=== PATIENT | female | born 1960 ===

== ENCOUNTER 2024-01-25 10:47 | Inpatient (IN) | payer OTHER ==
[2024-01-25] MEDS ORDERED: APIXABAN 5 MG TABLET ONE (12:19)
[2024-01-25] MEDS ORDERED: METOPROLOL TARTRATE 5 MG/5 ML INJ IV ONE (12:20)
[2024-01-25 12:28] LABS: Absolute Basophils 0.1 K/uL (0-0.5); Absolute Eosinophils 0.1 K/uL (0-0.5); Absolute Lymphocytes (CBC) 1.3 K/uL (0.7-4.9); Basophils % 1.4 % (0-1.3); Hematocrit 51.6 % (36.0-45.0); Hemoglobin 17.1 g/dL (12.0-15.0); Lymphocytes % 17.7 % (15.3-44.8); MCH 33.7 pg (27.0-35.0); MCHC 33.1 g/dL (32.0-36.0); MCV 101.7 fL (80-100); MPV 8.1 fL (7.6-11.3); Monocytes % 13.3 % (3.3-12.3); Neutrophils % 66.6 % (41.7-73.7); Nucleated Red Blood Cells % 0.1 % (0-0); Platelets 331 thou/uL (152-406); RBC Red Blood Cell Count 5.07 M/uL (3.86-4.86); Red Cell Distribution Width 13.9 % (12.1-15.2)
[2024-01-25 12:40] LABS: Albumin 3.9 g/dL (3.4-5.0); Albumin/Globulin Ratio 0.9 (1.1-1.8); Anion Gap 8.4 mEq/L (5.0-15.0); Bilirubin Direct 0.3 mg/dL (0-0.2); Bilirubin Indirect, Calculated 0.7 mg/dL (0.2-0.8); Globulin 4.2 g/dL (2.3-3.5); Potassium 3.4 mEq/L (3.5-5.1); Protein, Total 8.1 g/dL (6.4-8.2); Troponin High Sensitivity 8.2 pg/mL (<58.9)
--- NOTE | 2024-01-25 13:17 | EDPHYS ---
Physician Documentation [facility] Name: Hazel Goode Age: 63 yrs Sex: Female : 1960 Arrival Date: 01/25/2024 Time: 10:47 Bed 19 Private MD: ED Physician Nimco Foley HPI: 01/24 13:13 This 63 yrs old Unknown Female presents to ER via Ambulatory with complaints of AFIB. sp3 13:13 63-year-old female with history of hypertension sent by Dr. Hammond for new onset atrial sp3 fibrillation for admission with subsequent intervention tomorrow. Sotalol and Eliquis recommended. Patient denies any fever, chest pain, shortness of breath, back pain, palpitations, or any other signs or symptoms on ROS at this time.. Historical: - Allergies: 11:13 Sulfa (Sulfonamide Antibiotics); jl7 - Home Meds: 11:13 Metoprolol Tartrate Oral [Active]; valsartan-hydrochlorothiazide oral [Active]; jl7 - PMHx: 11:13 Hypertensive disorder; congenital heart defect; jl7 - PSHx: 11:13 Tonsillectomy; Open heart surgery to repair congenital heart defect; jl7 - Immunization history:: Adult Immunizations unknown. - Infectious Disease History:: Denies. - Social history:: Smoking status: Patient denies any tobacco usage or history of. ROS: 13:13 Constitutional: Negative for fever, chills, and weight loss, Eyes: Negative for injury, sp3 pain, redness, and discharge, Neck: Negative for injury, pain, and swelling, Respiratory: Negative for shortness of breath, cough, wheezing, and pleuritic chest pain, Abdomen/GI: Negative for abdominal pain, nausea, vomiting, diarrhea, and constipation, Back: Negative for injury and pain, MS/Extremity: Negative for injury and deformity, Skin: Negative for injury, rash, and discoloration, Neuro: Negative for headache, weakness, numbness, tingling, and seizure, Psych: Negative for depression, anxiety, suicide ideation, homicidal ideation, and hallucinations, Allergy/Immunology: Negative for hives, rash, and allergies, Endocrine: Negative for neck swelling, polydipsia, polyuria, polyphagia, and marked weight changes, Hematologic/Lymphatic: Negative for swollen nodes, abnormal bleeding, and unusual bruising, 13:13 All other systems are negative, Exam: 13:14 Constitutional: This is a well developed, well nourished patient who is awake, alert, sp3 and in no acute distress. Head/Face: Normocephalic, atraumatic. Eyes: Pupils equal round and reactive to light, extra-ocular motions intact. Lids and lashes normal. Conjunctiva and sclera are non-icteric and not injected. Cornea within normal limits. Periorbital areas with no swelling, redness, or edema. Neck: Trachea midline, no thyromegaly or masses palpated, and no cervical lymphadenopathy. Supple, full range of motion without nuchal rigidity, or vertebral point tenderness. No Meningismus. Chest/axilla: Normal chest wall appearance and motion. Nontender with no deformity. No lesions are appreciated. Respiratory: Lungs have equal breath sounds bilaterally, clear to auscultation and percussion. No rales, rhonchi or wheezes noted. No increased work of breathing, no retractions or nasal flaring. Abdomen/GI: Soft, non-tender, with normal bowel sounds. No distension or tympany. No guarding or rebound. No evidence of tenderness throughout. Back: No spinal tenderness. No costovertebral tenderness. Full range of motion. Skin: Warm, dry with normal turgor. Normal color with no rashes, no lesions, and no evidence of cellulitis. MS/ Extremity: Pulses equal, no cyanosis. Neurovascular intact. Full, normal range of motion. Neuro: Awake and alert, GCS 15, oriented to person, place, time, and situation. Cranial nerves II-XII grossly intact. Motor strength 5/5 in all extremities. Sensory grossly intact. Cerebellar exam normal. Normal gait. Psych: Awake, alert, with orientation to person, place and time. Behavior, mood, and affect are within normal limits. 13:14 Cardiovascular: Irregularly irregular rhythm, 13:14 ECG was reviewed by the Attending Physician. EKG demonstrates atrial fibrillation at 118 bpm with absent [place] interval, normal axis, nonspecific diffuse ST/T changes without evidence of acute ischemia. Vital Signs: 11:12 BP 120 / 76; Pulse 113; Resp 17; Pulse Ox 95% ; Weight 101.6 kg; Height 5 ft. 7 in. ; jl7 Pain 0/10; 12:01 BP 118 / 79; Pulse 120; Resp 17; Temp 98; Pulse Ox 98% on R/A; rs5 14:01 BP 125 / 74; Pulse 101; Resp 17; Pulse Ox 99% on R/A; rs5 16:20 BP 112 / 76; Pulse 107; Resp 17; Pulse Ox 97% on R/A; rs5 11:12 Body Mass Index 35.08 (101.60 kg, 170.18 cm) jl7 11:12 Pain Scale: Adult jl7 MDM: 11:41 Medical Screening Exam initiated sp3 13:14 Data reviewed: vital signs, nurses notes, lab test result(s), EKG, radiologic studies. sp3 ED course: Lopressor 5 mg IV and Eliquis 5 mg p.o. given. Patient stable. Atrial fibrillation due to [place] heart etiology versus electrolytes. Labs normal. Troponin negative. Will admit to medicine for further care and cardiology intervention tomorrow.. 01/24 12:05 Order name: Basic Metabolic Panel; Complete Time: 13:12 sp3 01/24 12:05 Order name: CBC with Diff; Complete Time: 13:12 sp3 01/24 12:05 Order name: LFT's; Complete Time: 13:12 sp3 01/24 12:05 Order name: Magnesium; Complete Time: 13:12 sp3 01/24 12:05 Order name: NT PRO-BNP; Complete Time: 13:12 sp3 01/24 12:05 Order name: PT-INR; Complete Time: 13:25 sp3 01/24 12:05 Order name: Troponin HS; Complete Time: 13:12 sp3 01/24 14:23 Order name: CBC with Automated Diff EDMS 01/24 14:23 Order name: CBC with Automated Diff EDMS 01/24 14:23 Order name: Comprehensive Metabolic Panel EDMS 01/24 14:23 Order name: Comprehensive Metabolic Panel EDMS 01/24 14:23 Order name: T4 Free EDMS 01/24 14:23 Order name: T4 Free EDMS 01/24 14:23 Order name: Thyroid Stimulating Hormone EDMS 01/24 14:23 Order name: Thyroid Stimulating Hormone EDMS 01/24 14:23 Order name: Vitamin B12 Level EDMS 01/24 14:23 Order name: Vitamin B12 Level EDMS 01/24 12:05 Order name: XRAY Chest (1 view); Complete Time: 13:44 sp3 01/24 14:23 Order name: CONS Physician Consult EDWV 01/24 12:05 Order name: Cardiac monitoring; Complete Time: 12:12 sp3 01/24 12:05 Order name: EKG - Nurse/Tech; Complete Time: 12:12 sp3 01/24 12:05 Order name: IV Saline Lock; Complete Time: 12:12 sp3 01/24 12:05 Order name: Labs collected and sent; Complete Time: 12:12 sp3 01/24 12:05 Order name: O2 Per Protocol; Complete Time: 12:12 sp3 01/24 12:05 Order name: O2 Sat Monitoring; Complete Time: 12:12 sp3 01/24 12:40 Order name: Labs - recollect needed: recollect blue top; Complete Time: 13:05 bd Administered Medications: 12:15 Drug: Metoprolol IVP 5 mg IVP once; Hold for SBP <100 or HR <60. Route: IVP; Site: [facility] right antecubital; 12:30 Follow up: Response: No adverse reaction rs5 12:15 Drug: Eliquis PO 5 mg PO once Route: PO; rs5 13:01 Follow up: Response: No adverse reaction rs5 14:10 Drug: Sotalol PO 80 mg PO once Route: PO; rs5 15:21 Follow up: Response: No adverse reaction rs5 Disposition Summary: 01/25/24 13:16 Hospitalization Ordered Notes: Hospitalization Status: Inpatient Admission sp3 Provider: Elier Molina3 Location: Telemetry/[facility] (Inpatient) sp3 Condition: Stable sp3 Problem: new sp3 Symptoms: have worsened sp3 Bed/Room Type: Standard sp3 Room Assignment: 204(01/25/24 15:16) Diagnosis - Atrial fibrillation with rapid ventricular response sp3 Forms: - Medication Reconciliation Form sp3 - SBAR form sp3 - Leadership Thank You Letter sp3 Signatures: Dispatcher [employer] EDWV Lupe Jimenes Shelly, BIPINC ASSISTANT TO THE VICE PRESIDENT-Csnw Rocio Zaidi RN RN ss David Montesinos RN RN [id number] Nimco Foley MD MD sp3 Shar Olivares RN RN rs5 Corrections: (The following items were deleted from the chart) 11:15 11:13 PMHx: Congenital heart disease; jl7 jl7 12:06 12:06 BASIC METABOLIC PANEL+C.LAB.BRZ ordered. EDMS EDMS 12:06 12:06 CBC+H.LAB.BRZ ordered. EDMS EDMS 12:06 12:06 HEPATIC FUNCTION+C.LAB.BRZ ordered. EDMS EDMS 12: 12:06 MAGNESIUM+C.LAB.BRZ ordered. EDMS EDMS 12:06 12:06 PROBNP+C.LAB.BRZ ordered. EDMS EDMS 12:06 12:06 PROTIME (+INR)+COAG.LAB.BRZ ordered. EDMS EDMS 12:06 12:06 Troponin High Sensitivity+C.LAB.BRZ ordered. EDMS EDMS 12:06 12:06 Chest Single View+RAD.RAD.BRZ ordered. EDMS EDMS 15:16 13:16 sp3 ss
--- NOTE | 2024-01-25 13:17 | ER ---
Nurse's Notes [facility] Name: Hazel Goode Age: 63 yrs Sex: Female : 1960 Arrival Date: 01/25/2024 Time: 10:47 Bed 19 [facility] MD: Diagnosis: Atrial fibrillation with rapid ventricular response Presentation: 01/24 11:12 Chief complaint: Patient states: Sent by Dr. Hammond for new onset a.fib, denies jl7 palpitation, denies SOB, denies pain. Coronavirus screen: At this time, the client does not indicate any symptoms associated with coronavirus-19. Ebola Screen: No symptoms or risks identified at this time. Initial Sepsis Screen: Does the patient meet any 2 criteria? No. Patient's initial sepsis screen is negative. Does the patient have a suspected source of infection? No. Patient's initial sepsis screen is negative. Risk Assessment: Do you want to hurt yourself or someone else? Patient reports no desire to harm self or others. Onset of symptoms is unknown. 11:12 Method Of Arrival: Ambulatory [facility] 11:12 Acuity: ISABELLE 2 jl7 Triage Assessment: 10:55 General: Appears in no apparent distress. uncomfortable, Behavior is calm, cooperative, jl7 appropriate for age. Pain: Denies pain. Neuro: Level of Consciousness is awake, alert, obeys commands, Oriented to person, place, time, situation. Cardiovascular: Denies chest pain, palpitations, shortness of breath, Patient's skin is warm and dry. Respiratory: Airway is patent Respiratory effort is even, unlabored, Respiratory pattern is regular, symmetrical. Derm: Skin is pink, warm \T\ dry. Historical: - Allergies: 11:13 Sulfa (Sulfonamide Antibiotics); jl7 - Home Meds: 11:13 Metoprolol Tartrate Oral [Active]; valsartan-hydrochlorothiazide oral [Active]; jl7 - PMHx: 11:13 Hypertensive disorder; congenital heart defect; jl7 - PSHx: 11:13 Tonsillectomy; Open heart surgery to repair congenital heart defect; jl7 - Immunization history:: Adult Immunizations unknown. - Infectious Disease History:: Denies. - Social history:: Smoking status: Patient denies any tobacco usage or history of. Screenin:11 [facility] ED Fall Risk Assessment (Adult) History of falling in the last 3 months, rs5 including since admission No falls in past 3 months (0 pts) Confusion or Disorientation No (0 pts) Intoxicated or Sedated No (0 pts) Impaired Gait No (0 pts) Mobility Assist Device Used No (0 pt) Altered Elimination No (0 pt) Score/Fall Risk Level 0 - 2 = Low Risk Oriented to surroundings, Maintained a safe environment. Abuse screen: Denies threats or abuse. Nutritional screening: No deficits noted. Tuberculosis screening: No symptoms or risk factors identified. Assessment: 11:10 General: Appears in no apparent distress. comfortable, Behavior is calm, cooperative. rs5 Pain: Denies pain. Neuro: Level of Consciousness is awake, alert, obeys commands, Oriented to person, place, time, situation. Cardiovascular: Patient's skin is warm and dry. Respiratory: Airway is patent Respiratory effort is even, unlabored, Respiratory pattern is regular, symmetrical. GI: Abdomen is round non-distended, Abd is soft and non tender X 4 quads. : No signs and/or symptoms were reported regarding the genitourinary system. EENT: No signs and/or symptoms were reported regarding the EENT system. Derm: Skin is intact, Skin is pink, warm \T\ dry. Musculoskeletal: Range of motion: intact in all extremities. 12:21 Reassessment: Patient and/or family updated on plan of care and expected duration. Pain rs5 level reassessed. Patient is alert, oriented x 3, equal unlabored respirations, skin warm/dry/pink. 13:19 Reassessment: Patient and/or family updated on plan of care and expected duration. Pain rs5 level reassessed. Patient is alert, oriented x 3, equal unlabored respirations, skin warm/dry/pink. 14:33 Reassessment: No changes from previously documented assessment. rs5 15:41 Reassessment: Patient and/or family updated on plan of care and expected duration. Pain rs5 level reassessed. Patient is alert, oriented x 3, equal unlabored respirations, skin warm/dry/pink. 16:25 Reassessment: No changes from previously documented assessment. rs5 Vital Signs: 11:12 BP 120 / 76; Pulse 113; Resp 17; Pulse Ox 95% ; Weight 101.6 kg; Height 5 ft. 7 in. ; jl7 Pain 0/10; 12:01 BP 118 / 79; Pulse 120; Resp 17; Temp 98; Pulse Ox 98% on R/A; rs5 14:01 BP 125 / 74; Pulse 101; Resp 17; Pulse Ox 99% on R/A; rs5 16:20 BP 112 / 76; Pulse 107; Resp 17; Pulse Ox 97% on R/A; rs5 11:12 Body Mass Index 35.08 (101.60 kg, 170.18 cm) jl7 11:12 Pain Scale: Adult jl7 ED Course: 10:50 Patient arrived in ED. mg5 10:51 Nimco Foley MD is Attending Physician. sp3 10:55 Arm band placed on right wrist. EKG completed in triage. Results shown to MD. jl7 11:11 Patient has correct armband on for positive identification. Placed in gown. Bed in low rs5 position. Call light in reach. Side rails up X2. 11:11 No provider procedures requiring assistance completed. rs5 11:13 Triage completed. jl7 11:41 Shar Olivares, ANGELY is Primary Nurse. rs5 11:55 Initial lab(s) drawn, by me, sent to lab. Inserted saline lock: 20 gauge in right bc6 antecubital area, using aseptic technique. Blood collected. Flushed with 10 mL NS. 13:15 Elier Molina MD is Hospitalizing Provider. sp3 13:32 XRAY Chest (1 view) In Process Unspecified. EDMS 13:56 1356 CM met with patient at the bedside in the ED exam room. Patient identified by name ane and . Demographic sheet confirmed. PCP is Amanda Marte NP. Patient states she lives with her Louie, in a single story home. She reports that prior to admission, she performs ADLs independently. No DME, no HH, no home oxygen, no other medical services at this time. Patient reports MPOA is in place. Her preferred plan is to return home and to work when discharged. She states her Louie can transport her home. CM team will continue to follow and coordinate care. 16:25 Patient admitted, IV remains in place. rs5 Administered Medications: 12:15 Drug: Metoprolol IVP 5 mg IVP once; Hold for SBP <100 or HR <60. Route: IVP; Site: rs5 right antecubital; 12:30 Follow up: Response: No adverse reaction rs5 12:15 Drug: Eliquis PO 5 mg PO once Route: PO; rs5 13:01 Follow up: Response: No adverse reaction rs5 14:10 Drug: Sotalol PO 80 mg PO once Route: PO; rs5 15:21 Follow up: Response: No adverse reaction rs5 Medication: 16:32 VIS not applicable for this client. rs5 Outcome: 13:16 Decision to Hospitalize by Provider. sp3 16:25 Admitted to ER Hold. Please see [facility] for further documentation. rs5 16:25 Condition: stable 16:25 Instructed on the need for admit, Demonstrated understanding of instructions, 16:30 Patient left the ED. rs5 Signatures: Dispatcher [employer] EDDavid Sethi RN RN jl7 Nimco Foley MD MD sp3 Shar Olivares RN RN rs5 Deepa Starkey Miley Tsang 5 Wendi Green RN RN ane Corrections: (The following items were deleted from the chart) 11:15 11:13 PMHx: Congenital heart disease; jl7 jl7 16:35 16:01 BP 112 / 76; Pulse 107bpm; Resp 17bpm; Pulse Ox 97% RA; rs5 rs5 16:36 12:01 BP 118 / 79; Pulse 120bpm; Resp 17bpm; Pulse Ox 98% RA; rs5 rs5
[2024-01-25 13:18] LABS: PT Prothrombin Time 13.5 SECONDS (9.4-12.5); Protime INR 1.21
--- NOTE | 2024-01-25 13:26 | P.HP ---
Certification for Inpatient Patient admitted to: Inpatient With expected LOS: >2 Midnights Patient will require the following post-hospital care: None Practitioner: I am a practitioner with admitting privileges, knowledge of patient current condition, hospital course, and medical plan of care. Services: Services provided to patient in accordance with Admission requirements found in Title 42 Section 412.3 of the Code of Federal Regulations Patient History Date of Service: 01/25/24 Reason for admission: new onset a. fib History of Present Illness: Ms. Goode is a 63-year-old female with a past medical history of hypertension. She has seen Dr. Hammond in the past and had a 6-month checkup today. While getting an EKG in the clinic,she was noted to be in atrial fibrillation. Ms. Goode was sent to the emergency room for evaluation and initiation of sotalol 80 mg p.o. twice daily and Eliquis 5 mg p.o. twice daily. She was hemodynamically stable with a rate of 118 so 5 mg IV metoprolol was administered in the emergency department. She remains asymptomatic. She will be admitted for chemical cardioversion. Labs: H/H17.1/51.6 with platelets of 331, sodium 132, potassium 3.4, creatinine 0.96 with a GFR of 67 Imaging: Chest x-ray with no acute intrathoracic abnormalities Allergies Sulfa (Sulfonamide Antibiotics) [Sulfa(Sulfonamide Antibiotics)] Allergy (Intermediate, Verified 04/11/14 15:52) Hives/Rash hydrocodone Allergy (Verified 04/11/14 15:52) Anaphylaxis Home medications list reviewed: Yes Home Medications: Aliskiren/Hydrochlorothiazide [Tekturna Hct 150-25 mg Tablet] 1 each PO DAILY 04/11/14 Norethindrone-E.estradiol-Iron [Loestrin Fe 1-20 Tablet] 1 each PO DAILY 04/11/14 - Past Medical/Surgical History Diabetic: No -: HTN Psychosocial/ Personal History: Lives at home with her - Social History Smoking Status: Never smoker Alcohol use: Yes CD- Drugs: No Caffeine use: Yes Place of Residence: Home Review of Systems 10-point ROS is otherwise unremarkable General: Unremarkable Eyes: Unremarkable ENT: Unremarkable Respiratory: Unremarkable Cardiovascular: Unremarkable Gastrointestinal: Unremarkable Genitourinary: Unremarkable Musculoskeletal: Unremarkable Integumentary: Unremarkable Neurological: Unremarkable Lymphatics: Unremarkable Physical Examination - Vital Signs Blood Pressure: 120/76 Pulse: 113 Respirations: 17 Pulse Ox (%): 95 - Physical Exam General: Alert, In no apparent distress, Oriented x3 HEENT: Atraumatic, Normocephalic Neck: Supple Respiratory: Clear to auscultation bilaterally, Normal air movement, Diminished Cardiovascular: No edema, Irregular heart rate/rhythm Capillary refill: <2 Seconds Gastrointestinal: Soft and benign Musculoskeletal: No clubbing, No swelling, No contractures Integumentary: No rashes, Other (dry) Neurological: Normal speech, Normal tone, Normal affect Lymphatics: No axilla or inguinal lymphadenopathy External genitalia: Deferred Rectal: Deferred - Studies Laboratory Data (last 24 hrs) 01/25/24 01/25/24 01/25/24 13:00 12:15 12:15 WBC 7.50 Hgb 17.1 H Hct 51.6 H Plt Count 331 PT 13.5 H INR 1.21 Sodium 132 L Potassium 3.4 L BUN 7 Creatinine 0.96 Glucose 109 H Magnesium 2.0 Total Bilirubin 1.0 AST 41 H ALT 55 Alkaline Phosphatase 114 Assessment and Plan - Plan New onset A-fib with RVR 1. Continue medications for rate control - sotalol 2. Anticoagulation - eliquis 3. Echocardiogram 4. Cardiology consultation - Dr. Hammond 5. GI and DVT prophylaxis Hemoconcentration NS at 75ml/hr Heart healthy diet Hypertension valsartan at home - 40mg - will increase to home dose prn, hold hctz 2nd to hemoconcentration Atorvastatin Discharge Plan: Home Plan to discharge in: 48 Hours - Advance Directives Does patient have a Living Will: Yes Does patient have a Durable POA for Healthcare: Yes - Code Status/Comfort Care Code Status Assessed: Yes (Full)
--- NOTE | 2024-01-25 13:41 | RAD REPORT ---
EXAMINATION: ONE VIEW CHEST XR CLINICAL INDICATION: PALPITATIONS TECHNIQUE: Frontal chest projection is submitted. Examination is limited by patient positioning and t echnique. COMPARISON: No prior exam. FINDINGS: The lungs are well inflated and clear. The heart is upper limit of normal in size. No displaced fract ures identified. IMPRESSION: No acute intrathoracic abnormalities.
[2024-01-25] MEDS ORDERED: ONDANSETRON 4 MG/2 ML VIAL IV PRN (14:18)
[2024-01-25] MEDS ORDERED: ACETAMINOPHEN 500 MG TAB PO PRN (14:18)
[2024-01-25] MEDS: SOTALOL HCL 80 MG TAB PO ONE (14:45)
[2024-01-25 17:18] VITALS: BMI 35.0
[2024-01-25] MEDS ORDERED: SOTALOL HCL 80 MG TAB PO SCH (18:00)
[2024-01-25] MEDS: NA CHLORIDE 0.9% 1,000 ML IV SCH (18:00)
[2024-01-25 18:12] LABS: Thyroid Stimulating Hormone 4.49 uIU/mL (0.358-3.740)
[2024-01-25] MEDS: PANTOPRAZOLE 40MG TABLET PO SCH (20:02)
[2024-01-25] MEDS: ATORVASTATIN 20 MG TAB PO SCH (20:34)
[2024-01-25] MEDS: SOTALOL HCL 80 MG TAB PO SCH (20:34)
[2024-01-25] MEDS: POTASSIUM CL SA 10 MEQ TAB PO ONE (20:35)
[2024-01-25] MEDS: APIXABAN 5 MG TABLET PO SCH (20:36)
[2024-01-26 05:12] LABS: Absolute Basophils 0.1 K/uL (0-0.5); Absolute Eosinophils 0.1 K/uL (0-0.5); Absolute Lymphocytes (CBC) 1.6 K/uL (0.7-4.9); Absolute Monocytes 0.9 K/uL (0.1-1.3); Absolute Neutrophil 4.4 K/uL (1.8-8.0); Basophils % 1.1 % (0-1.3); Eosinophils % 1.9 % (0-4.4); Hematocrit 45.9 % (36.0-45.0); Hemoglobin 15.4 g/dL (12.0-15.0); MCH 33.9 pg (27.0-35.0); MCHC 33.6 g/dL (32.0-36.0); MCV 100.9 fL (80-100); Monocytes % 12.5 % (3.3-12.3); Neutrophils % 62.5 % (41.7-73.7); Nucleated Red Blood Cells % 0.1 % (0-0); Platelets 269 thou/uL (152-406); RBC Red Blood Cell Count 4.55 M/uL (3.86-4.86); Red Cell Distribution Width 13.9 % (12.1-15.2)
[2024-01-26 05:57] LABS: Albumin/Globulin Ratio 0.9 (1.1-1.8); Anion Gap 8.4 mEq/L (5.0-15.0); Globulin 3.5 g/dL (2.3-3.5); Magnesium 2.1 mg/dL (1.6-2.4); Potassium 4.4 mEq/L (3.5-5.1); Protein, Total 6.5 g/dL (6.4-8.2)
[2024-01-26 05:58] LABS: Thyroid Stimulating Hormone 4.83 uIU/mL (0.358-3.740)
[2024-01-26] MEDS: VALSARTAN 40 MG TAB PO SCH (08:58)
--- NOTE | 2024-01-26 09:42 | P.PN ---
Date of Service: 01/26/24 Subjective feeling the same, no c/o except not much sleep in the hospital Review of Systems 10-point ROS is otherwise unremarkable General: Unremarkable Eyes: Unremarkable ENT: Unremarkable Respiratory: Unremarkable Cardiovascular: Unremarkable Gastrointestinal: Unremarkable Genitourinary: Unremarkable Musculoskeletal: Unremarkable Integumentary: Unremarkable Neurological: Unremarkable Lymphatics: Unremarkable Physical Examination - Vital Signs reviewed - Physical Exam General: Alert, In no apparent distress, Oriented x3 HEENT: Atraumatic, Normocephalic Neck: Supple Respiratory: Clear to auscultation bilaterally, Normal air movement, Diminished Cardiovascular: No edema, regular heart rate/rhythm Capillary refill: <2 Seconds Gastrointestinal: Soft and benign Musculoskeletal: No clubbing, No swelling, No contractures Integumentary: No rashes, Other (dry) Neurological: Normal speech, Normal tone, Normal affect Lymphatics: No axilla or inguinal lymphadenopathy External genitalia: Deferred Rectal: Deferred - Studies Laboratory Data (last 24 hrs) 01/25/24 01/25/24 01/25/24 13:00 12:15 12:15 WBC 7.50 Hgb 17.1 H Hct 51.6 H Plt Count 331 PT 13.5 H INR 1.21 Sodium 132 L Potassium 3.4 L BUN 7 Creatinine 0.96 Glucose 109 H Magnesium 2.0 Total Bilirubin 1.0 AST 41 H ALT 55 Alkaline Phosphatase 114 Assessment and Plan - Plan New onset A-fib with RVR 1. Continue medications for rate control - sotalol 2. Anticoagulation - eliquis 3. Echocardiogram 4. Cardiology consultation - Dr. Hammond 5. GI and DVT prophylaxis Hemoconcentration NS at 75ml/hr Heart healthy diet improved to H/H 15.4/45.9 replaced potassium discussed diuretics continue to monitor and trend/replete electrolytes Hypertension valsartan at home - 40mg - will increase to home dose prn, hold hctz 2nd to hemoconcentration Atorvastatin 130/90 this am 01/26/24 feeling the same, no edema, alert and awake. Heart sounds RRR. Will repeat EKG states she gets ECHOs at Dr. Hammond's office so may hold echo order awaiting third dose of sotalol irregular rate in 80s later in the am NPO post MN for GERSON with DCCV Discharge Plan: Home Plan to discharge in: 48 Hours - Advance Directives Does patient have a Living Will: Yes Does patient have a Durable POA for Healthcare: Yes - Code Status/Comfort Care Code Status Assessed: Yes (Full)
--- NOTE | 2024-01-26 12:49 | P.CNS ---
Date of Consult: 01/26/24 Chief Complaint: new onset a. fib History of Present Illness: Patient with PMH of HTN, was admitted from clinic for new onset atrial fibrillation, report palpitations but denies chest pain, no SOB. Allergies Sulfa (Sulfonamide Antibiotics) [Sulfa(Sulfonamide Antibiotics)] Allergy (Intermediate, Verified 04/11/14 15:52) Hives/Rash hydrocodone Allergy (Verified 04/11/14 15:52) Anaphylaxis Home medications list reviewed: Yes Home Medications: Metoprolol Succinate 25 mg PO DAILY 01/25/24 Valsartan/Hydrochlorothiazide [Valsartan-Hctz 160-12.5 mg Tab] 1 each PO DAILY 01/25/24 - Past Medical/Surgical History Diabetic: No -: HTN -: Congenital Heart Defect (Aortic valve constriction) -: Tonsillectomy -: -: Open heart Surgery Psychosocial/ Personal History: Lives at home with her - Social History Alcohol use: Yes CD- Drugs: No Caffeine use: Yes Place of Residence: Home Review of Systems 10-point ROS is otherwise unremarkable Physical Examination Temp Pulse Resp BP Pulse Ox 97.0 F 73 18 146/82 H 99 01/26/24 08:00 01/26/24 08:00 01/26/24 08:00 01/26/24 08:00 01/26/24 08:00 General: Alert, In no apparent distress HEENT: Atraumatic, PERRLA, Mucous membr. moist/pink, EOMI, Sclerae nonicteric Neck: Supple, 2+ carotid pulse no bruit, No LAD, Without JVD or thyroid abnormality Respiratory: Clear to auscultation bilaterally, Normal air movement Cardiovascular: Irregular heart rate/rhythm Gastrointestinal: Normal bowel sounds, No tenderness Musculoskeletal: No tenderness Integumentary: No rashes Neurological: Normal gait, Normal speech, Normal tone, Normal affect Lymphatics: No axilla or inguinal lymphadenopathy Laboratory Data (last 24 hrs) 01/25/24 13:00 PT 13.5 H INR 1.21 - Problems (1) Atrial fibrillation Current Visit: Yes Status: Acute Plan: Tele shows atrial fibrillation ,rate controlled Continue Sotalol 80 mg po BID (EKG after 3rd dose) Continue Eliquis 5 mg po BID NPO after midnight for possible GERSON DCCV in am. (2) HTN (hypertension) Current Visit: Yes Status: Acute Plan: continue patient home medications D/C IV fluids
[2024-01-26] MEDS: ACETAMINOPHEN 500 MG TAB PO PRN (20:52)
[2024-01-27 05:06] LABS: Anion Gap 7.3 mEq/L (5.0-15.0); Phosphorus 3.7 mg/dL (2.5-4.9); Potassium 4.3 mEq/L (3.5-5.1)
[2024-01-27] MEDS: SOTALOL HCL 80 MG TAB PO SCH (06:20)
[2024-01-27] MEDS: NA CHLORIDE 0.9% 500 ML ONE (09:28)
[2024-01-27] MEDS ORDERED: LIDOCAINE 1% MPF 5 ML VIAL ONE (09:57)
[2024-01-27] MEDS ORDERED: propofoL 200 MG/20 ML VIAL IV ONE (09:57)
--- NOTE | 2024-01-27 10:47 | P.PN ---
Subjective Date of Service: 01/27/24 Chief Complaint: new onset a. fib Subjective: No new changes, No C/O voiced, Tolerating diet, Ambulating, Improving Review of Systems 10-point ROS is otherwise unremarkable Physical Examination - Vital Signs Temperature: 97.7 F Blood Pressure: 145/79 Pulse: 86 Respirations: 16 Pulse Ox (%): 95 - Physical Exam General: Alert, In no apparent distress HEENT: Atraumatic, PERRLA, EOMI Neck: Supple, JVD not distended Respiratory: Clear to auscultation bilaterally, Normal air movement Cardiovascular: Regular rate/rhythm, Normal S1 S2 Gastrointestinal: Normal bowel sounds, No tenderness Musculoskeletal: No tenderness Integumentary: No rashes Neurological: Normal speech, Normal tone, Normal affect Lymphatics: No axilla or inguinal lymphadenopathy - Studies Medications List Reviewed: Yes Assessment And Plan - Current Problems (Diagnosis) (1) Atrial fibrillation Current Visit: Yes Status: Acute Plan: Tele shows atrial fibrillation ,rate controlled, patient is s/p GERSON DCCV, converted to sinus rhythm. Continue Sotalol 80 mg po BID (EKG after 3rd dose) Continue Eliquis 5 mg po BID (2) HTN (hypertension) Current Visit: Yes Status: Acute Plan: continue patient home medications
--- NOTE | 2024-01-27 12:35 | P.DS ---
Admission Date: 01/25/24 Discharge Date: 01/27/24 Reason for Admission: new onset a. fib Consultations: Dr. Lange Brief History of Present Illness: Ms. Goode is a 63-year-old female with a past medical history of hypertension. She has seen Dr. Hammond in the past and had a 6-month checkup today. While getting an EKG in the clinic,she was noted to be in atrial fibrillation. Ms. Goode was sent to the emergency room for evaluation and initiation of sotalol 80 mg p.o. twice daily and Eliquis 5 mg p.o. twice daily. She was hemodynamically stable with a rate of 118 so 5 mg IV metoprolol was administered in the emergency department. She remains asymptomatic. She will be admitted for chemical cardioversion. Labs: H/H17.1/51.6 with platelets of 331, sodium 132, potassium 3.4, creatinine 0.96 with a GFR of 67 Imaging: Chest x-ray with no acute intrathoracic abnormalities Hospital Course: Mrs. Goode did well over the course of her hospitalization. Sotalol alone did control rate; however, patient remained in A-fib this morning. She was taken to the Operational Trainer and a GERSON DCCV performed. Patient in normal sinus rhythm after conversion. Hemodynamically stable. No complaints. She will need to continue Sotalol 80 mg p.o. twice daily and Eliquis 5 mg p.o. twice daily and will follow-up with cardiology in 2 weeks <Lorena Gandhi - Last Filed: 01/27/24 13:15> Admission Date: 01/25/24 Discharge Date: 01/27/24 Hospital Course: Discharge diagnosis New onset atrial fibrillation Hypertension Obesity <JERICHO Jones - Last Filed: 01/27/24 17:06> Disposition: ROUTINE DISCHARGE Discharge Condition: GOOD Vital Signs/Physical Exam: Temp Pulse Resp BP Pulse Ox 97.7 F 78 16 120/72 95 01/27/24 10:47 01/27/24 10:50 01/27/24 10:50 01/27/24 10:50 01/27/24 10:47 General: Alert, In no apparent distress, Oriented x3, Other (mildly anxious about procedure) HEENT: Atraumatic, Normocephalic Neck: Supple Respiratory: Clear to auscultation bilaterally, Normal air movement Cardiovascular: No edema, Irregular heart rate/rhythm (on initial assessment prior to DCCV this am, now NSR) Capillary refill: <2 Seconds Gastrointestinal: Normal bowel sounds, Soft and benign Musculoskeletal: No clubbing, No swelling Integumentary: No rashes Neurological: Normal speech, Normal tone, Normal affect Lymphatics: No axilla or inguinal lymphadenopathy External genitalia: Deferred Rectal: Deferred Laboratory Data at Discharge: WBC 7.10 thou/uL (4.3-10.9) 01/26/24 04:32 Hgb 15.4 g/dL (12.0-15.0) H D 01/26/24 04:32 Hct 45.9 % (36.0-45.0) H 01/26/24 04:32 Plt Count 269 thou/uL (152-406) 01/26/24 04:32 PT 13.5 SECONDS (9.4-12.5) H 01/25/24 13:00 INR 1.21 01/25/24 13:00 Sodium 132 mEq/L (136-145) L 01/27/24 04:30 Potassium 4.3 mEq/L (3.5-5.1) 01/27/24 04:30 BUN 7 mg/dL (7-18) 01/27/24 04:30 Creatinine 0.81 mg/dL (0.55-1.02) 01/27/24 04:30 Glucose 110 mg/dL (74-106) H 01/27/24 04:30 Phosphorus 3.7 mg/dL (2.5-4.9) 01/27/24 04:30 Magnesium 2.0 mg/dL (1.6-2.4) 01/27/24 04:30 Total Bilirubin 1.0 mg/dL (0.2-1.0) 01/26/24 04:32 AST 31 U/L (15-37) 01/26/24 04:32 ALT 42 U/L (13-56) 01/26/24 04:32 Alkaline Phosphatase 89 U/L (45-117) D 01/26/24 04:32 Triglycerides 113 mg/dL (<150) 01/26/24 04:32 Cholesterol 110 mg/dL (<200) 01/26/24 04:32 HDL Cholesterol 47 mg/dL (40-60) 01/26/24 04:32 Cholesterol/HDL Ratio 2.34 01/26/24 04:32 <Gandhi,Lorena Ga - Last Filed: 01/27/24 13:15> Vital Signs/Physical Exam: Temp Pulse Resp BP Pulse Ox 97.2 F 82 16 121/72 96 01/27/24 12:00 01/27/24 12:00 01/27/24 12:00 01/27/24 12:00 01/27/24 12:00 Laboratory Data at Discharge: WBC 7.10 thou/uL (4.3-10.9) 01/26/24 04:32 Hgb 15.4 g/dL (12.0-15.0) H D 01/26/24 04:32 Hct 45.9 % (36.0-45.0) H 01/26/24 04:32 Plt Count 269 thou/uL (152-406) 01/26/24 04:32 PT 13.5 SECONDS (9.4-12.5) H 01/25/24 13:00 INR 1.21 01/25/24 13:00 Sodium 132 mEq/L (136-145) L 01/27/24 04:30 Potassium 4.3 mEq/L (3.5-5.1) 01/27/24 04:30 BUN 7 mg/dL (7-18) 01/27/24 04:30 Creatinine 0.81 mg/dL (0.55-1.02) 01/27/24 04:30 Glucose 110 mg/dL (74-106) H 01/27/24 04:30 Phosphorus 3.7 mg/dL (2.5-4.9) 01/27/24 04:30 Magnesium 2.0 mg/dL (1.6-2.4) 01/27/24 04:30 Total Bilirubin 1.0 mg/dL (0.2-1.0) 01/26/24 04:32 AST 31 U/L (15-37) 01/26/24 04:32 ALT 42 U/L (13-56) 01/26/24 04:32 Alkaline Phosphatase 89 U/L (45-117) D 01/26/24 04:32 Triglycerides 113 mg/dL (<150) 01/26/24 04:32 Cholesterol 110 mg/dL (<200) 01/26/24 04:32 HDL Cholesterol 47 mg/dL (40-60) 01/26/24 04:32 Cholesterol/HDL Ratio 2.34 01/26/24 04:32 <JERICHO Jones - Last Filed: 01/27/24 17:06> Diet: AHA Activity: Ad carly <Lorena Gandhilen - Last Filed: 01/27/24 13:15> <JERICHO Jones - Last Filed: 01/27/24 17:06> Home Medications: Apixaban [Eliquis] 5 mg PO BID #180 tab 01/27/24 Atorvastatin Calcium [Lipitor*] 20 mg PO BEDTIME #90 tab 01/27/24 Sotalol HCl [Betapace*] 80 mg PO BID@0600,1800 #180 tab 01/27/24 Valsartan [Diovan*] 40 mg PO DAILY #90 tab 01/27/24 New Medications: Sotalol HCl [Betapace*] 80 mg PO BID@0600,1800 #180 tab Valsartan [Diovan*] 40 mg PO DAILY #90 tab Apixaban [Eliquis] 5 mg PO BID #180 tab Atorvastatin Calcium [Lipitor*] 20 mg PO BEDTIME #90 tab Physician Discharge Instructions: Hospital course: Mrs. Goode did well over the course of her hospitalization. Sotalol alone did control rate; however, patient remained in A-fib this morning. She was taken to the Operational Trainer and a GERSON DCCV performed. Patient in normal sinus rhythm after conversion. Hemodynamically stable. No complaints. She will need to continue Sotalol 80 mg p.o. twice daily and Eliquis 5 mg p.o. twice daily and will follow-up with cardiology in 2 weeks. Will change valsartan/hctz to just valsartan as Mrs. Goode was hemoconcentrated with mild hyponatremia. New prescriptions: Sotalol 80mg po BID #180 Valsartan 40mg po daily #90 Apixaban 5mg po BID #180 Diet: AHA, low sodium Activity: Fall precautions INSTRUCTIONS: Physician Discharge Instructions: Okay to DC IV and DC home Follow-up with primary care provider in 1 to 2 weeks Follow-up with cardiology in 2-weeks Please call the inpatient unit for any questions or concerns regarding hospital stay Return to the ER for worsening symptoms Followup: Wilman Lange MD [ACTIVE - CAN ADMIT] - 1-2 Weeks [facility] [Primary Care Provider] - 1-2 Weeks
[2024-01-27 13:27] VITALS: BP 121/72; TEMP 97.2
--- NOTE | 2024-01-27 13:28 | TEE ---
TRANSESOPHAGEAL ECHOCARDIOGRAM REPORT CARDIOLOGY DEPARTMENT DATE OF STUDY: 01/27/2024 HEIGHT: 5'7 WEIGHT: 224 lbs DIAGNOSIS: ATRIAL FIBRILLATION, CARDIOVERSION COMMENTS: 1. NORMAL LEFT ATRIAL APPENDAGE. NO THROMBUS. 2. STATUS POST TRANSESOPHAGEAL ECHOCARDIOGRAM DIRECT CURRENTCARDIOVERSION. TECHNOLOGIST: JOSELINE LEWIS
[2024-01-27 14:44] VITALS: O2SAT 97
--- NOTE | 2024-01-27 22:43 | OP ---
Date of Procedure: 01/27/2024 Surgeon: Wilman Lange Procedure Performed: Synchronized transesophageal echocardiogram cardioversion. Indication For Procedure: Atrial fibrillation. Complications: None. Estimated Blood Loss: None. Sedation: Done by Anesthesia team. Description Of Procedure: After risks, benefits, and alternatives were explained to the patient, the patient agreed to proceed with procedure and signed informed consent. The patient was brought back to the OR. Time-out was performed. Sedation was administered by Anesthesia team. GERSON probe inserte d. Images were obtained and then GERSON probe out. Synchronized cardioversion done with 200 joules. T he patient was converted back into sinus rhythm. The patient was moved back to recovery in stable co ndition. Assessment And Plan: Atrial fibrillation, status post successful transesophageal echocardiogram guid ed cardioversion. The plan will be to continue sotalol 80 mg p.o. b.i.d. Continue Eliquis 5 mg p.o. b.i.d. ANNEL/LANEY Voice ID: [id number] Report ID: [id number]
--- NOTE | 2024-01-28 15:12 | EKG ---
Test Date: 2024-01-26 Test Time: 10:18:08 Sterilizer Operator: LINN MEASUREMENT RESULTS: Intervals: Rate: 96 [place]: QRSD: 78 QT: 380 QTc: 480 [place]: P: [place]: QRS: -34 T: 98 INTERPRETIVE STATEMENTS: Atrial flutter with variable AV block with premature ventricular or aberrantly conducted complexes Left axis deviation Low voltage QRS Nonspecific T wave abnormality Prolonged QT Abnormal ECG Compared to ECG 01/25/2024 11:03:44 Ventricular premature complex(es) now present Left-axis deviation now present T-wave abnormality now present Prolonged QT interval now present ST (T wave) deviation no longer present Electronically Signed On 01-28-24 15:07:55 PHARMACY LABORATORY TECHNICIAN by Wilman Lange
--- NOTE | 2024-01-28 15:14 | EKG ---
Test Date: 2024-01-25 Test Time: 11:03:44 Demurrage Clerk: DAVID MEASUREMENT RESULTS: Intervals: Rate: 118 [place]: QRSD: 70 QT: 378 QTc: 529 [place]: P: [place]: QRS: -14 T: 96 INTERPRETIVE STATEMENTS: Atrial flutter with variable AV block Low voltage QRS Nonspecific ST and T wave abnormality Abnormal ECG No previous ECG available for comparison Electronically Signed On 01-28-24 15:09:56 ZIGZAG APPLIQUER by Wilman Lange
--- NOTE | 2024-02-01 08:59 | EKG ---
Test Date: 2024-01-26 Test Time: 17:56:00 [employer]: HALIE MEASUREMENT RESULTS: Intervals: Rate: 87 [place]: QRSD: 90 QT: 396 QTc: 476 [place]: P: -68 [place]: QRS: -10 T: 98 INTERPRETIVE STATEMENTS: Atrial flutter with variable AV block with premature ventricular or aberrantly conducted complexes Abnormal QRS-T angle, consider primary T wave abnormality Prolonged QT Abnormal ECG Compared to ECG 01/26/2024 10:18:08 Left-axis deviation no longer present T-wave abnormality still present Electronically Signed On 02-01-24 08:56:21 BEDSPREAD FOLDER by Wilman Lange
== END 2024-01-27 15:09 | disposition home or self-care (01) | DRG 310 ==
LOC: ER 10:47 → ERHOLD 14:18 → 2ND 15:18
PROVIDERS: ADMIT Hospitalist; ATTEND Internal Medicine
PROC: B24BZZ4 Ultrasonography of Heart with Aorta, Transesophageal (ICD-10-PCS; principal; 2024-01-27)
PROC: 5A2204Z Restoration of Cardiac Rhythm, Single (ICD-10-PCS; 2024-01-27)
DX: I48.91 Unspecified atrial fibrillation (principal); I10 Essential (primary) hypertension; E66.9 Obesity, unspecified; Z88.2 Allergy status to sulfonamides; Z68.35 Body mass index [BMI] 35.0-35.9, adult; Z79.01 Long term (current) use of anticoagulants; Z79.899 Other long term (current) drug therapy
CPT/HCPCS: 01922; 36415; 71045; 80048; 80053; 80061; 80076; 82607; 83735; 83880; 84100; 84439; 84443; 84484; 85025; 85610; 92960; 93005; 93312; 94760; 96374; 99285; J2003; J2704; J7030; J7040

== ENCOUNTER 2024-07-20 20:03 | Emergency (ER) | payer OTHER ==
[2024-07-20] MEDS ORDERED: MORPHINE 4 MG/ML SYR ONE (23:14)
[2024-07-20] MEDS ORDERED: ONDANSETRON 4 MG/2 ML VIAL ONE (23:15)
[2024-07-20 23:29] LABS: Specific Gravity 1.007 (1.005-1.030); Urine Bilirubin NEGATIVE (Negative); Urine Blood Negative (Negative); Urine Clarity Clear (Clear); Urine Color Colorless (Yellow); Urine Glucose NEGATIVE (Negative); Urine Ketones TRACE (Negative); Urine Microscopic Reflex YN NO UMIC; Urine Nitrite NEGATIVE (Negative); Urine Protein NEGATIVE (Negative); Urine Urobilinogen Normal (Normal)
[2024-07-20 23:31] LABS: Absolute Basophils 0.1 K/uL (0-0.5); Absolute Eosinophils 0.1 K/uL (0-0.5); Absolute Monocytes 1.1 K/uL (0.1-1.3); Basophils % 1.1 % (0-1.3); Eosinophils % 1.2 % (0-4.4); Hematocrit 47.4 % (36.0-45.0); Hemoglobin 16.2 g/dL (12.0-15.0); Lymphocytes % 19.7 % (15.3-44.8); MCH 34.1 pg (27.0-35.0); MCHC 34.2 g/dL (32.0-36.0); MCV 99.7 fL (80-100); MPV 7.8 fL (7.6-11.3); Monocytes % 10.3 % (3.3-12.3); Neutrophils % 67.7 % (41.7-73.7); Nucleated Red Blood Cells % 0.1 % (0-0); Platelets 342 thou/uL (152-406); RBC Red Blood Cell Count 4.76 M/uL (3.86-4.86); Red Cell Distribution Width 13.6 % (12.1-15.2)
[2024-07-21 00:01] LABS: Albumin 3.9 g/dL (3.4-5.0); Albumin/Globulin Ratio 0.9 (1.1-1.8); Bilirubin Total 0.8 mg/dL (0.2-1.0); Globulin 4.2 g/dL (2.3-3.5); Protein, Total 8.1 g/dL (6.4-8.2)
--- NOTE | 2024-07-21 02:35 | RAD REPORT ---
CT ABDOMEN PELVIS WITH IV CONTRAST CLINICAL INDICATION: Low back; flank pain. COMPARISON: CT abdomen pelvis 07/26/2016 TECHNIQUE: CT images of the abdomen and pelvis obtained following administration of intravenous contr ast. Multiplanar reformats were provided. Dose-optimization techniques such as automated exposure control, iterative reconstruction, and mA and/or kV adjustment for patient size was utilized for this examination. FINDINGS: LOWER CHEST: Bilateral breast implants in place. Lung bases are clear. No pleural or pericardial effu benito. LIVER: Unremarkable. BILIARY: Unremarkable. PANCREAS: Unremarkable. SPLEEN: Unremarkable. ADRENALS: Unremarkable. KIDNEYS/URETERS: No nephrolithiasis or hydronephrosis. No suspicious lesion. STOMACH: Unremarkable. BOWEL: Unremarkable. APPENDIX: Normal. MESENTERY/PERITONEUM: Unremarkable. RETROPERITONEUM: No adenopathy. URINARY BLADDER: Mild circumferential wall thickening of urinary bladder may be due to underdistentio n. Correlation with urinalysis to exclude cystitis is recommended. REPRODUCTIVE: Unremarkable. VASCULAR: Unremarkable. ABDOMINAL/PELVIC WALL: Unremarkable. 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 No compression deformity, nor osteolytic or sclerotic lesion. IMPRESSION: 1. Mild circumferential wall thickening of urinary bladder may be due to underdistention. Correlati on with urinalysis to exclude cystitis is recommended. 2. 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 Electronically signed by: Evie Webster MD 07/21/2024 02:10 AM [facility] Due to temporary technical issues with the PACS/Xagenic reporting system, reports are being emma d by the in-house radiologist without review as a courtesy to ensure prompt reporting the interpreting radiologist is fully responsible for the content of the report. Transcribed Date/Time: 07/21/2024 2:35 AM
--- NOTE | 2024-07-21 02:47 | EDPHYS ---
Physician Documentation [facility] Name: Hazel Goode Age: 63 yrs Sex: Female : 1960 Arrival Date: 07/20/2024 Time: 20:03 Bed 15 Private MD: ED Physician Nimco Foley HPI: 07/20 23:09 This 63 yrs old Unknown Female presents to ER via Wheelchair with complaints of Low sp3 Back Pain. 23:09 63-year-old female with history of atrial fibrillation on Eliquis, hypertension, prior sp3 congenital heart defect and prior low back pain now presents with recurrent low back pain except worsening in intensity. Patient states that she has been taking Tylenol which has not been significantly helping. She was told that she cannot take NSAIDs. She denies any intra-abdominal pain, syncope, near syncope, neurological symptoms, chest pain, upper back pain, shortness of breath, trauma, or any other signs or symptoms on ROS at this time.. Historical: - Allergies: 20:26 Sulfa (Sulfonamide Antibiotics); ha1 - Home Meds: 20:26 Metoprolol Tartrate Oral [Active]; atorvastatin oral [Active]; Eliquis 5 mg oral tablet ha1 [Active]; sotalol 80 mg Oral tablet [Active]; - PMHx: 20:26 Congenital Heart Defect; Hypertensive disorder; ha1 - PSHx: 20:26 Open heart surgery to repair congenital heart defect; Tonsillectomy; ha1 - Immunization history:: Adult Immunizations up to date. - Infectious Disease History:: Denies. - Social history:: Smoking status: Patient denies any tobacco usage or history of. ROS: 23:11 Constitutional: Negative for fever, chills, and weight loss, Eyes: Negative for injury, sp3 pain, redness, and discharge, Neck: Negative for injury, pain, and swelling, Cardiovascular: Negative for chest pain, palpitations, and edema, Respiratory: Negative for shortness of breath, cough, wheezing, and pleuritic chest pain, Abdomen/GI: Negative for abdominal pain, nausea, vomiting, diarrhea, and constipation, : Negative for injury, bleeding, discharge, and swelling, MS/Extremity: Negative for injury and deformity, Skin: Negative for injury, rash, and discoloration, Neuro: Negative for headache, weakness, numbness, tingling, and seizure, Psych: Negative for depression, anxiety, suicide ideation, homicidal ideation, and hallucinations, Allergy/Immunology: Negative for hives, rash, and allergies, Endocrine: Negative for neck swelling, polydipsia, polyuria, polyphagia, and marked weight changes, Hematologic/Lymphatic: Negative for swollen nodes, abnormal bleeding, and unusual bruising, 23:11 All other systems are negative, Exam: 23:11 Constitutional: This is a well developed, well nourished patient who is awake, alert, sp3 and in no acute distress. Head/Face: Normocephalic, atraumatic. Eyes: Pupils equal round and reactive to light, extra-ocular motions intact. Lids and lashes normal. Conjunctiva and sclera are non-icteric and not injected. Cornea within normal limits. Periorbital areas with no swelling, redness, or edema. Neck: Trachea midline, no thyromegaly or masses palpated, and no cervical lymphadenopathy. Supple, full range of motion without nuchal rigidity, or vertebral point tenderness. No Meningismus. Chest/axilla: Normal chest wall appearance and motion. Nontender with no deformity. No lesions are appreciated. Cardiovascular: Regular rate and rhythm with a normal S1 and S2. No gallops, murmurs, or rubs. Normal PMI, no JVD. No pulse deficits. Respiratory: Lungs have equal breath sounds bilaterally, clear to auscultation and percussion. No rales, rhonchi or wheezes noted. No increased work of breathing, no retractions or nasal flaring. Abdomen/GI: Soft, non-tender, with normal bowel sounds. No distension or tympany. No guarding or rebound. No evidence of tenderness throughout. Skin: Warm, dry with normal turgor. Normal color with no rashes, no lesions, and no evidence of cellulitis. MS/ Extremity: Pulses equal, no cyanosis. Neurovascular intact. Full, normal range of motion. Neuro: Awake and alert, GCS 15, oriented to person, place, time, and situation. Cranial nerves II-XII grossly intact. Motor strength 5/5 in all extremities. Sensory grossly intact. Cerebellar exam normal. Normal gait. Psych: Awake, alert, with orientation to person, place and time. Behavior, mood, and affect are within normal limits. 23:11 Back: Mild pain to palpation on lower musculature. No anterior abdominal pain noted., Vital Signs: 20:23 BP 156 / 79; Pulse 67; Resp 17 S; Temp 98.2; Pulse Ox 100% on R/A; Weight 95.25 kg; ha1 Height 5 ft. 7 in. ; Pain 9/10; 23:28 BP 167 / 83; Pulse 65; Resp 17 S; Pulse Ox 99% on R/A; ha1 07/21 01:50 BP 168 / 77; Pulse 64; Resp 17 S; Pulse Ox 99% on R/A; ha1 02:50 BP 155 / 79; Pulse 64; Resp 17 S; Pulse Ox 99% on R/A; ha1 07/20 20:23 Body Mass Index 32.89 (95.25 kg, 170.18 cm) 1 07/20 20:23 Pain Scale: Adult ha MDM: 07/20 20:14 Medical Screening Exam initiated sp3 23:12 Data reviewed: vital signs, nurses notes, lab test result(s), radiologic studies. ED sp3 course: 63-year-old female with PMH above now with low back pain. Patient is on Eliquis. Differential diagnosis includes musculoskeletal pain, UTI, kidney stone, anterior lesser degree vascular pathology. Will obtain CT scan of the abdomen pelvis, general labs, UA administer pain and nausea control. Disposition pending workup and patient course with probable discharge home if workup negative. Vital signs are currently normal.. 07/21 02:44 ED course: Patient's pain improved. Facet joint arthritic changes noted coupled with sp3 congenitally short pedicles. Will discharge patient after p.o. dose of Flexeril in the ED on oral meds and follow-up with orthopedics for continued outpatient workup.. 07/20 22:34 Order name: CBC with Diff; Complete Time: 23:55 sp3 07/20 22:34 Order name: CMP; Complete Time: 00:05 sp3 07/20 22:34 Order name: Lipase; Complete Time: 00:05 sp3 07/20 22:34 Order name: UA Rfx Marcell Cult if indicated; Complete Time: 23:55 sp3 07/20 22:34 Order name: CT Abd/Pelvis - IV Contrast Only sp3 07/20 22:34 Order name: IV Saline Lock; Complete Time: 23:20 sp3 07/20 22:34 Order name: Labs collected and sent; Complete Time: 23:20 sp3 Administered Medications: 07/20 23:25 Drug: Ondansetron IVP 4 mg IVP once; over 2 minutes Route: IVP; Site: right antecubital;ha1 07/21 00:00 Follow up: Response: No adverse reaction; Marked relief of symptoms ha1 07/20 23:28 Drug: morphine IVP or IV 4 mg IVP once over 4 mins Route: IVP; Infused Over: 4 mins; ha1 Site: right antecubital; 07/21 00:00 Follow up: Response: No adverse reaction; Marked relief of symptoms; Pain is decreased; ha1 RASS: Alert and Calm (0) 03:00 Drug: Cyclobenzaprine PO 10 mg PO once Route: PO; ha1 03:07 Follow up: Response: No adverse reaction ha1 Disposition Summary: 07/21/24 02:47 Discharge Ordered Notes: Location: Home sp3 Condition: Stable sp3 Diagnosis - Low back pain, lumbar spasm, lumbar arthritis. sp3 Followup: sp3 - With: Shan Franco MD - When: Upon discharge from the Emergency Department - Reason: Continuance of care Discharge Instructions: - Discharge Summary Sheet sp3 - Acute Back Pain, Adult sp3 Forms: - Medication Reconciliation Form sp3 - Antibiotic Education sp3 - Prescription Opioid Use sp3 - Patient Portal Instructions sp3 - Leadership Thank You Letter sp3 Prescriptions: - Tramadol 50 mg Oral Tablet - take 1 tablet ORAL route every 8 hours as needed; 12 tablet; Refills: 0, sp3 Product Selection Permitted - Medrol (Karlos) 4 mg Oral Tablets, Dose Pack - take 1 tablet ORAL route as directed - follow package instructions; 1 packet; sp3 Refills: 0, Product Selection Permitted - Cyclobenzaprine 5 mg Oral Tablet - take 1 tablet ORAL route 3 times per day As needed; 15 tablet; Refills: 0, sp3 Product Selection Permitted Signatures: Dispatcher [employer] Nimco Benavides MD MD sp3 Alejandra Blanton RN RN ha1 Corrections: (The following items were deleted from the chart) 07/20 22:35 22:35 CBC+H.LAB.BRZ ordered. EDMS EDMS 22:35 22:35 COMPREHENSIVE METABOLIC PANEL+C.LAB.BRZ ordered. EDMS EDMS 22:35 22:35 LIPASE+C.LAB.BRZ ordered. EDMS EDMS 22:35 22:35 UA Rfx Marcell Cult if indicated+U.LAB.BRZ ordered. EDMS EDMS 22:35 22:35 Abdomen Pelvis W Con+CT.RAD.BRZ ordered. EDMS EDMS
--- NOTE | 2024-07-21 02:47 | ER ---
Nurse's Notes [facility] Name: Hazel Goode Age: 63 yrs Sex: Female : 1960 Arrival Date: 07/20/2024 Time: 20:03 Bed 15 Private MD: Diagnosis: Low back pain, lumbar spasm, lumbar arthritis. Presentation: 07/20 20:23 Chief complaint: Patient states: LOWER BACK PAIN SINCE YESTERDAY. PAIN GETS WORSE WITH ha1 MOVEMENT. Coronavirus screen: Client denies travel out of the [place] in the last 14 days. Ebola Screen: No symptoms or risks identified at this time. Initial Sepsis Screen: Does the patient meet any 2 criteria? No. Patient's initial sepsis screen is negative. Does the patient have a suspected source of infection? No. Patient's initial sepsis screen is negative. Risk Assessment: Do you want to hurt yourself or someone else? Patient reports no desire to harm self or others. Onset of symptoms was July 20, 2024. 20:23 Method Of Arrival: Wheelchair ha1 20:23 Acuity: ISABELLE 3 ha1 Triage Assessment: 20:26 General: Appears uncomfortable, Behavior is cooperative. Pain: Complains of pain in ha1 lumbar area Pain currently is 9 out of 10 on a pain scale. Quality of pain is described as throbbing. Neuro: Level of Consciousness is awake, alert, obeys commands, Oriented to person, place, time, situation. Cardiovascular: Patient's skin is warm and dry. Respiratory: Airway is patent Respiratory effort is even, unlabored, Respiratory pattern is regular, symmetrical. Historical: - Allergies: 20:26 Sulfa (Sulfonamide Antibiotics); ha1 - Home Meds: 20:26 Metoprolol Tartrate Oral [Active]; atorvastatin oral [Active]; Eliquis 5 mg oral tablet ha1 [Active]; sotalol 80 mg Oral tablet [Active]; - PMHx: 20:26 Congenital Heart Defect; Hypertensive disorder; ha1 - PSHx: 20:26 Open heart surgery to repair congenital heart defect; Tonsillectomy; ha1 - Immunization history:: Adult Immunizations up to date. - Infectious Disease History:: Denies. - Social history:: Smoking status: Patient denies any tobacco usage or history of. Screenin:29 [facility] ED Fall Risk Assessment (Adult) History of falling in the last 3 months, ha1 including since admission No falls in past 3 months (0 pts) Confusion or Disorientation No (0 pts) Intoxicated or Sedated No (0 pts) Impaired Gait Yes (1 pt) Mobility Assist Device Used Yes (1 pt) Altered Elimination No (0 pt) Score/Fall Risk Level 3 or more points = High Risk Oriented to surroundings, Maintained a safe environment, Educated pt \T\ family on fall prevention, incl call for assistance when getting out of bed, Hourly rounding (assess needs \T\ fall precautionary measures) done. Abuse screen: Denies threats or abuse. Denies injuries from another. Nutritional screening: No deficits noted. Tuberculosis screening: No symptoms or risk factors identified. Assessment: 22:30 Reassessment: see triage assessment. ha1 23:28 Reassessment: Patient and/or family updated on plan of care and expected duration. Pain ha1 level reassessed. Patient is alert, oriented x 3, equal unlabored respirations, skin warm/dry/pink. Vital Signs: 20:23 BP 156 / 79; Pulse 67; Resp 17 S; Temp 98.2; Pulse Ox 100% on R/A; Weight 95.25 kg; ha1 Height 5 ft. 7 in. ; Pain 9/10; 23:28 BP 167 / 83; Pulse 65; Resp 17 S; Pulse Ox 99% on R/A; ha1 05 01:50 BP 168 / 77; Pulse 64; Resp 17 S; Pulse Ox 99% on R/A; ha1 02:50 BP 155 / 79; Pulse 64; Resp 17 S; Pulse Ox 99% on R/A; ha1 07/20 20:23 Body Mass Index 32.89 (95.25 kg, 170.18 cm) ha1 07/20 20:23 Pain Scale: Adult 1 ED Course: 07/20 20:11 Patient arrived in ED. gm2 20:13 Nimco Foley MD is Attending Physician. sp3 20:23 Arm band placed on right wrist. ha1 20:23 Patient has correct armband on for positive identification. Bed in low position. Call [facility] light in reach. Side rails up X 1. 20:23 Provided Education on: plan of care . ha1 20:26 Triage completed. ha1 23:11 Alejandra Blanton, RN is Primary Nurse. ha1 23:20 Initial lab(s) drawn, by me, sent to lab. Inserted saline lock: 20 gauge in right rk3 antecubital area, using aseptic technique. Blood collected. Flushed with 10 mL NS. 07/21 00:22 CT Abd/Pelvis - IV Contrast Only In Process Unspecified. EDMS 02:46 Shan Franco MD is Referral Physician. sp3 03:08 No provider procedures requiring assistance completed. IV discontinued, intact, ha1 bleeding controlled, No redness/swelling at site. Pressure dressing applied. Administered Medications: 07/20 23:25 Drug: Ondansetron IVP 4 mg IVP once; over 2 minutes Route: IVP; Site: right antecubital;ha1 07/21 00:00 Follow up: Response: No adverse reaction; Marked relief of symptoms ha1 07/20 23:28 Drug: morphine IVP or IV 4 mg IVP once over 4 mins Route: IVP; Infused Over: 4 mins; ha1 Site: right antecubital; 07/21 00:00 Follow up: Response: No adverse reaction; Marked relief of symptoms; Pain is decreased; ha1 RASS: Alert and Calm (0) 03:00 Drug: Cyclobenzaprine PO 10 mg PO once Route: PO; ha1 03:07 Follow up: Response: No adverse reaction ha1 Medication: 03:09 VIS not applicable for this client. ha1 Outcome: 02:47 Discharge ordered by . sp3 03:08 Discharged to home via wheelchair, with friend, ha1 03:08 Condition: stable 03:08 Discharge instructions given to patient, Instructed on discharge instructions, follow up and referral plans. medication usage, Demonstrated understanding of instructions, follow-up care, medications, Prescriptions given X 3, 03:10 Patient left the ED. ha1 Signatures: Dispatcher [employer] EDMS Nimco Foley MD MD sp3 Alejandra Blanton RN RN ha1 Michelle Fried 2 [place] rk3
[2024-07-21] MEDS ORDERED: CYCLOBENZAPRINE 10 MG TAB ONE (02:56)
[2024-07-21 03:24] VITALS: TEMP 98.2
[2024-07-21 03:30] VITALS: O2SAT 99
[2024-07-21 03:36] VITALS: BP 155/79
== END 2024-07-21 03:10 | disposition home or self-care (01) ==
LOC: ER 20:03
DX: M62.830 Muscle spasm of back (principal); M47.896 Other spondylosis, lumbar region; I48.91 Unspecified atrial fibrillation; Z79.01 Long term (current) use of anticoagulants; I10 Essential (primary) hypertension
CPT/HCPCS: 85025; 36415; 81003; 83690; 80053; 74177; 96375; 96374; 99284; Q9967; J2405